=== PATIENT | male | born 1980 | race Hispanic/Latino ===

== ENCOUNTER 2017-09-01 01:19 | Emergency (ER) | payer SELFPAY ==
[2017-09-01] MEDS ORDERED: Adacel (T-DAP) 0.5 ML VIAL ONE (02:54)
== END 2017-09-01 03:22 | disposition home or self-care (01) ==
LOC: ERS 01:19
DX: S02.5XXA Fracture of tooth (traumatic), initial encounter for closed fracture (principal); F17.210 Nicotine dependence, cigarettes, uncomplicated; W51.XXXA Accidental striking against or bumped into by another person, initial encounter
CPT/HCPCS: 90471; 90715

== ENCOUNTER 2019-04-19 00:51 | Inpatient (IN) | payer OTHER, SELFPAY ==
[2019-04-19] MEDS ORDERED: Adacel (T-DAP) 0.5 ML SYRINGE ONE (01:33)
[2019-04-19 01:38] LABS: #Basophils 0.1 thou/uL (0.0-0.2); #Eosinphils 0.1 thou/uL (0.0-0.7); #Lymphocytes 1.8 thou/uL (1.20-3.40); #Monocytes 0.4 thou/uL (0.11-0.59); #Neutrophils 3.5 thou/uL (1.40-6.50); %Basophils 0.9 % (0.0-1.0); %Lymphocytes 31.1 % (21.0-51.0); %Monocytes 6.9 % (0.0-10.0); %Neutrophils 60.1 % (42.0-75.0); Hemoglobin 15.7 g/dL (14.0-18.0); Mean Corpuscular HGB CONC 35.1 g/dL (32.0-36.0); Mean Corpuscular Hemoglobin 35.2 pg (27.0-31.0); Mean Platelet Volume 6.5 fL (7.4-10.4); Platelet Count 235 thou/uL (130-400); RBC Distribution Width 11.8 % (11.5-14.5); Red Blood Cell (RBC) Count 4.46 mill/uL (4.70-6.10); White Blood Cell (WBC) Count 5.8 thou/uL (4.8-10.8)
[2019-04-19 01:53] LABS: ALT (SGPT) 89 U/L (8-55); AST (SGOT) 154 U/L (5-34); Albumin 4.7 g/dL (3.5-5.0); Alkaline Phosphatase 76 U/L (40-110); Anion Gap 18 mmol/L (10-20); BUN (Urea Nitrogen) 6 mg/dL (8.9-20.6); Bilirubin, Total 0.4 mg/dL (0.2-1.2); Calc. Creatinine Clearance 0 mL/min (70-130); Calcium 9.2 mg/dL (7.8-10.44); Carbon Dioxide 22 mmol/L (22-29); Chloride 102 mmol/L (98-107); Estimated GFR-MDRD Greater than 90; Glucose 114 mg/dL (70-105); Potassium 3.7 mmol/L (3.5-5.1); Protein, Total 7.7 g/dL (6.0-8.3); Sodium 138 mmol/L (136-145)
[2019-04-19 02:43] LABS: PTT 27.5 SEC (22.9-36.1); Prothrombin Time 13.2 SEC (12.0-14.7)
[2019-04-19] MEDS ORDERED: Ondansetron PF 4 MG/2 ML Vial ONE (03:24)
[2019-04-19] MEDS ORDERED: Morphine 4 MG/ML VIAL ONE (03:24)
[2019-04-19] MEDS ORDERED: hydrALAZINE 20 MG/ML VIAL SLOW IVP PRN (03:53)
[2019-04-19] MEDS ORDERED: Dextrose 5% in Water 1,000 ML IV PRN (03:53)
[2019-04-19] MEDS ORDERED: Dextrose 50% Abboject 50 ML SYRINGE SLOW IVP PRN (03:53)
[2019-04-19] MEDS ORDERED: Promethazine HCl 25 MG/ML VIAL IM/IV PRN (03:53)
[2019-04-19 03:58] LABS: Amphetamine Not Detected (NotDetected); Barbiturates Screen Not Detected (NotDetected); Benzodiazepine Screen Not Detected (NotDetected); Cocaine Metabolite Screen Not Detected (NotDetected); Medtox Control Line Valid? VALID (VALID); Medtox Reader # READER 4; Methadone Not Detected (NotDetected); Methamphetamine Detected (NotDetected); Opiate Screen Not Detected (NotDetected); Oxycodone Screen Not Detected (NotDetected); Phencyclidine (PCP) Not Detected (NotDetected); THC/Cannabinoid Screen Not Detected (NotDetected); Tricyclic Screen Not Detected (NotDetected)
[2019-04-19] MEDS ORDERED: Sodium Chloride 0.9% 1,000 ML IV SCH (04:30)
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
[2019-04-19] MEDS: Sodium Chloride 0.9% 1,000 ML IV SCH ×3 (05:39→20:53)
[2019-04-19 05:44] VITALS: BMI 20.3
[2019-04-19] MEDS: Acetaminophen 1,000 MG in Premix Bag 1 BAG IVPB SCH ×4 (06:37→23:06)
[2019-04-19] MEDS ORDERED: Lidocaine 1% w/Epinephrine 1:100K 20 ML VIAL ONE (07:51)
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
[2019-04-19] MEDS ORDERED: Lidocaine 2% w/Epinephrine 1:200K 20 ML VIAL NERVE BLCK SCH (08:15)
[2019-04-19 08:46] LABS: Magnesium 2.2 mg/dL (1.6-2.6); Phosphorus 4.3 mg/dL (2.3-4.7)
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
--- NOTE | 2019-04-19 09:10 | RAD ---
Chest one view HISTORY: Chest injury. COMPARISON: 09/01/2014. FINDINGS: Cardiac silhouette is magnified by projection. Pulmonary vasculature is unremarkable. Media stinum is midline. No lobar consolidation or evidence of pneumothorax. laboratory monitor leads overlie the chest. IMPRESSION: No active cardiopulmonary abnormalities are demonstrated.
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
[2019-04-19] MEDS: Famotidine/PF 20 mg/2ml Vial SLOW IVP SCH ×2 (09:50→20:53)
[2019-04-19] MEDS: Multivitamin W/ Minerals 1 TAB PO SCH (09:50)
[2019-04-19] MEDS: Folic Acid 1 MG TAB PO SCH (09:50)
[2019-04-19] MEDS: Amoxicillin/Potassium Clav 500 MG TAB PO SCH ×2 (09:50→20:53)
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
--- NOTE | 2019-04-19 11:32 | CT ---
CT head noncontrast HISTORY: Head injury with intracranial hemorrhage. COMPARISON: 04/19/2019. Earlier exam on the same date. FINDINGS: At the lateral floor of the right frontal cranial fossa, a lobular hyperdense fluid collect ion consistent with parenchymal hematoma has enlarged to 2.6 cm x 2.1 cm greatest diameters on the axial images and is surrounded by small amount of vasogenic edema. The hematoma at the posterior aspect of the left middle cranial fossa floor within the temporal lobe now measures up to 3.8 cm length by 2.1 cm width. It is now surrounded by vasogenic edema. Slight effacement of the left lateral ventricle. No hydrocephalus. Mild diffuse effacement of the sulci the left cerebral hemisphere. The adjacent extra-axial blood along the floor of the left middle cranial fossa has not changed signi ficantly. Blood extending along the left tentorium is again demonstrated. Fluid in the right middle ear cavity and external auditory canal are again demonstrated. CT temporal bones/internal auditory canals is pending. IMPRESSION: Developing intraparenchymal hematomas and surrounding vasogenic edema in the right fronta l lobe and left temporal lobe where small amounts of blood were seen on the original CT exam. Developing cerebral is greater within the left cerebral hemisphere than the right, with slight efface ment of the left lateral ventricle. CT of the right temporal bone is pending regarding the right middle ear fluid.
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
[2019-04-19] MEDS: Ondansetron PF 4 MG/2 ML Vial IVP PRN (12:16)
[2019-04-19] MEDS: Oxazepam 10 MG CAP PO SCH ×3 (12:16→22:53)
[2019-04-19] MEDS ORDERED: levETIRAcetam In NaCl (Iso-Os) 1,000 MG in Premix Bag 1 BAG IVPB SCH (12:30)
[2019-04-19] MEDS: Scopolamine 1.5 mg/72 hour Patch TD SCH (12:45)
--- NOTE | 2019-04-19 17:45 | CT ---
Exam: Brain CT without IV contrast: COMPARISON: 04/19/2019 FINDINGS: Little change in the appearance of the right frontal and left temporal intraparenchymal hematomas and left-sided small subdural hematoma. Small stable punctate hyperdense focus in the right parietal convexity is stable. IMPRESSION: Overall stable appearing bilateral intraparenchymal and left-sided subdural hematoma changes. Continu ed short-term follow-up.
[2019-04-19] MEDS: Morphine 4 MG/ML VIAL SLOW IVP PRN (17:58)
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
[2019-04-19] MEDS ORDERED: Chlorhexidine Gluconate 15 ML UDCUP SSP SCH (22:45)
[2019-04-19] MEDS: Amoxicillin/Potassium Clav 875 MG TAB PO SCH (23:19)
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
[2019-04-20] MEDS: Oxazepam 10 MG CAP PO SCH ×3 (05:59→22:33)
[2019-04-20] MEDS: Morphine 4 MG/ML VIAL SLOW IVP PRN ×2 (06:10→09:42)
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
--- NOTE | 2019-04-20 08:01 | PRG ---
DATE OF SERVICE: 04/20/2019 Mr. Morse this morning is doing much better. He did have a full tonic-clonic seizure yesterday, but was loaded on Keppra and started on 500 b.i.d. He has normalized again and overall looks very well appearing. He had a CT scan performed yesterday afternoon, which appeared stable to the one from yesterday morning. He is alert and oriented. Follows commands. Neurosurgery at this time will sign off and plan to follow up in 6 weeks in the outpatient setting. Job ID: [id number]
[2019-04-20 08:35] LABS: #Basophils 0.1 thou/uL (0.0-0.2); #Eosinphils 0.1 thou/uL (0.0-0.7); #Monocytes 0.7 thou/uL (0.11-0.59); #Neutrophils 8.6 thou/uL (1.40-6.50); %Basophils 0.5 % (0.0-1.0); %Eosinophils 0.6 % (0.0-10.0); %Lymphocytes 9.1 % (21.0-51.0); %Neutrophils 82.8 % (42.0-75.0); Hemoglobin 13.1 g/dL (14.0-18.0); Mean Corpuscular HGB CONC 34.9 g/dL (32.0-36.0); Mean Corpuscular Hemoglobin 35.6 pg (27.0-31.0); Mean Platelet Volume 6.9 fL (7.4-10.4); Platelet Count 191 thou/uL (130-400); RBC Distribution Width 11.7 % (11.5-14.5); Red Blood Cell (RBC) Count 3.69 mill/uL (4.70-6.10); White Blood Cell (WBC) Count 10.4 thou/uL (4.8-10.8)
[2019-04-20] MEDS: Multivitamin W/ Minerals 1 TAB PO SCH (08:56)
[2019-04-20] MEDS: Folic Acid 1 MG TAB PO SCH (08:56)
[2019-04-20] MEDS ORDERED: Chlorhexidine Gluconate 15 ML UDCUP SSP SCH (09:00)
[2019-04-20 09:13] LABS: Anion Gap 16 mmol/L (10-20); BUN (Urea Nitrogen) 6 mg/dL (8.9-20.6); Calc. Creatinine Clearance 137 mL/min (70-130); Calcium 8.4 mg/dL (7.8-10.44); Carbon Dioxide 23 mmol/L (22-29); Chloride 100 mmol/L (98-107); Estimated GFR-MDRD Greater than 90; Glucose 75 mg/dL (70-105); Magnesium 2.2 mg/dL (1.6-2.6); Potassium 4.1 mmol/L (3.5-5.1); Sodium 135 mmol/L (136-145)
[2019-04-20] MEDS: Sodium Chloride 0.9% 1,000 ML IV SCH (09:21)
[2019-04-20] MEDS: Amoxicillin/Potassium Clav 875 MG TAB PO SCH ×2 (09:22→20:29)
[2019-04-20] MEDS: Chlorhexidine Gluconate 15 ML UDCUP SSP SCH ×2 (09:29→20:29)
[2019-04-20] MEDS: Famotidine/PF 20 mg/2ml Vial SLOW IVP SCH (09:29)
[2019-04-20] MEDS ORDERED: traMADol HCl 50 MG TAB PO PRN (15:24)
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
[2019-04-20] MEDS: Acetaminophen 500 MG TAB PO SCH (18:03)
[2019-04-20] MEDS ORDERED: PHOS-NAK 1 PKT PACK PO SCH (20:00)
[2019-04-20] MEDS: levETIRAcetam 500 MG TAB PO SCH (20:29)
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
[2019-04-21] MEDS: Acetaminophen 500 MG TAB PO SCH ×2 (00:39→06:15)
[2019-04-21 05:34] LABS: Anion Gap 13 mmol/L (10-20); BUN (Urea Nitrogen) 7 mg/dL (8.9-20.6); Calc. Creatinine Clearance 139 mL/min (70-130); Calcium 9.3 mg/dL (7.8-10.44); Carbon Dioxide 28 mmol/L (22-29); Chloride 96 mmol/L (98-107); Estimated GFR-MDRD Greater than 90; Glucose 126 mg/dL (70-105); Magnesium 2.1 mg/dL (1.6-2.6); Potassium 3.8 mmol/L (3.5-5.1); Sodium 133 mmol/L (136-145)
[2019-04-21 05:37] LABS: Phosphorus 1.8 mg/dL (2.3-4.7)
[2019-04-21] MEDS: Oxazepam 10 MG CAP PO SCH ×3 (06:15→21:19)
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
[2019-04-21] MEDS: Amoxicillin/Potassium Clav 875 MG TAB PO SCH ×2 (09:23→21:19)
[2019-04-21] MEDS: Multivitamin W/ Minerals 1 TAB PO SCH (09:24)
[2019-04-21] MEDS: levETIRAcetam 500 MG TAB PO SCH ×2 (09:24→21:19)
[2019-04-21] MEDS: Folic Acid 1 MG TAB PO SCH (09:24)
[2019-04-21] MEDS: Chlorhexidine Gluconate 15 ML UDCUP SSP SCH ×2 (09:24→21:19)
[2019-04-21] MEDS: Thiamine 100 MG TAB PO SCH (09:24)
[2019-04-21] MEDS ORDERED: Aluminum & Magnesium Hydroxide 60 ML, Lidocaine 2% Viscous Solution 30 ML, diphenhydrAM... SSW PRN (10:57)
[2019-04-21] MEDS ORDERED: Acetaminophen/Codeine 30-300mg Tablet PO PRN (11:04)
[2019-04-21] MEDS: Ondansetron PF 4 MG/2 ML Vial IVP PRN (11:35)
[2019-04-21] MEDS: Acetaminophen 325 MG TAB PO SCH ×3 (11:40→23:19)
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
[2019-04-22 05:21] LABS: Anion Gap 13 mmol/L (10-20); BUN (Urea Nitrogen) 6 mg/dL (8.9-20.6); Calc. Creatinine Clearance 126 mL/min (70-130); Calcium 9.6 mg/dL (7.8-10.44); Carbon Dioxide 32 mmol/L (22-29); Chloride 96 mmol/L (98-107); Estimated GFR-MDRD Greater than 90; Glucose 115 mg/dL (70-105); Magnesium 2.2 mg/dL (1.6-2.6); Phosphorus 3.2 mg/dL (2.3-4.7); Potassium 3.7 mmol/L (3.5-5.1); Sodium 137 mmol/L (136-145)
[2019-04-22] MEDS: Oxazepam 10 MG CAP PO SCH ×2 (06:08→15:15)
[2019-04-22] MEDS: Acetaminophen 325 MG TAB PO SCH ×2 (06:08→11:40)
[2019-04-22] MEDS: Amoxicillin/Potassium Clav 875 MG TAB PO SCH (09:29)
[2019-04-22] MEDS: levETIRAcetam 500 MG TAB PO SCH (09:29)
[2019-04-22] MEDS: Chlorhexidine Gluconate 15 ML UDCUP SSP SCH (09:29)
[2019-04-22] MEDS: Multivitamin W/ Minerals 1 TAB PO SCH (09:29)
[2019-04-22] MEDS: Folic Acid 1 MG TAB PO SCH (09:29)
[2019-04-22] MEDS: Thiamine 100 MG TAB PO SCH (09:29)
[2019-04-22] MEDS: Scopolamine 1.5 mg/72 hour Patch TD SCH (13:38)
[2019-04-22 16:33] VITALS: BP 122/80; TEMP 98.3
== END 2019-04-22 18:22 | disposition home or self-care (01) | DRG 86 ==
LOC: ERS 00:51 → EEVIPCON 03:53 → IMCU/EMU 03:53 → SJJU 04:22
PROVIDERS: ADMIT Surgery; ATTEND Surgery
DX: S06.6X1A Traumatic subarachnoid hemorrhage with loss of consciousness of 30 minutes or less, initial encounter (principal); S09.21XA Traumatic rupture of right ear drum, initial encounter; S01.511A Laceration without foreign body of lip, initial encounter; S02.42XA Fracture of alveolus of maxilla, initial encounter for closed fracture; R40.2412 Glasgow coma scale score 13-15, at arrival to emergency department; S02.5XXA Fracture of tooth (traumatic), initial encounter for closed fracture; F10.129 Alcohol abuse with intoxication, unspecified; R23.3 Spontaneous ecchymoses; K08.409 Partial loss of teeth, unspecified cause, unspecified class; Y04.0XXA Assault by unarmed brawl or fight, initial encounter
CPT/HCPCS: 36415; 70450; 70480; 70486; 71045; 72125; 80048; 80053; 80306; 80307; 83735; 84100; 85025; 85610; 85730; 90471; 90715; 96361; 96365; 96375; G0390; J0131; J0690; J1953; J2270; J2405; J7050; Q0163; S0028

== ENCOUNTER 2019-08-10 16:35 | Observation (INO) | payer OTHER, SELFPAY ==
--- NOTE | 2019-08-10 17:17 | RAD ---
XR Elbow Rt 4 View STANDARD INDICATION: Fall from ladder with right elbow pain FINDINGS: Bones: There is a comminuted, mildly displaced fracture involving the olecranon process with intra-ar ticular extension into the olecranon articular surface. There is overlying soft tissue swelling. There is a nondisplaced lateral right radial head fracture. Joints: There is mild joint capsular distention. Soft tissues: There is prominent soft tissue swelling overlying the posterior olecranon. IMPRESSION: 1. Comminuted, mildly displaced intra-articular olecranon process fracture. 2. Nondisplaced lateral right radial head fracture
--- NOTE | 2019-08-10 17:31 | RAD ---
XR Hip Rt 2-3 View INDICATION: Fall with right hip pain; fall from ladder of 6 feet COMPARISON: None FINDINGS: Bones: No acute osseous abnormality. Bone mineralization appears within normal limits. Hip joint: Radiographically normal. SI joints and symphysis pubis: Radiographically normal. Intrapelvic contents: Visualized bowel gas pattern is within normal limits. Surrounding soft tissues: Radiographically normal. IMPRESSION: 1. No acute osseous abnormality.
[2019-08-10] MEDS ORDERED: Morphine 4 MG/ML VIAL ONE ×2 (20:01→20:45)
[2019-08-10 20:02] LABS: #Basophils 0.1 thou/uL (0.0-0.2); #Eosinphils 0.1 thou/uL (0.0-0.7); #Lymphocytes 1.4 thou/uL (1.20-3.40); #Monocytes 0.8 thou/uL (0.11-0.59); %Basophils 0.4 % (0.0-1.0); %Eosinophils 0.5 % (0.0-10.0); %Lymphocytes 9.9 % (21.0-51.0); %Monocytes 5.2 % (0.0-10.0); Hemoglobin 15.1 g/dL (14.0-18.0); Mean Corpuscular HGB CONC 33.8 g/dL (32.0-36.0); Mean Corpuscular Hemoglobin 33.7 pg (27.0-31.0); Mean Corpuscular Volume 99.5 fL (78.0-98.0); Mean Platelet Volume 7.1 fL (7.4-10.4); Platelet Count 237 thou/uL (130-400); Red Blood Cell (RBC) Count 4.48 mill/uL (4.70-6.10); White Blood Cell (WBC) Count 14.3 thou/uL (4.8-10.8)
[2019-08-10] MEDS ORDERED: Morphine 2 MG/ML SYRINGE ONE (20:02)
[2019-08-10] MEDS ORDERED: Ondansetron PF 4 MG/2 ML Vial ONE (20:02)
[2019-08-10 20:24] LABS: ALT (SGPT) 106 U/L (8-55); AST (SGOT) 159 U/L (5-34); Albumin 4.8 g/dL (3.5-5.0); Alkaline Phosphatase 70 U/L (40-110); Anion Gap 18 mmol/L (10-20); BUN (Urea Nitrogen) 6 mg/dL (8.9-20.6); Bilirubin, Total 0.5 mg/dL (0.2-1.2); Calc. Creatinine Clearance 0 mL/min (70-130); Calcium 9.1 mg/dL (7.8-10.44); Carbon Dioxide 24 mmol/L (22-29); Chloride 104 mmol/L (98-107); Estimated GFR-MDRD Greater than 90; Globulin 2.7 g/dL (2.4-3.5); Glucose 97 mg/dL (70-105); Potassium 3.9 mmol/L (3.5-5.1); Protein, Total 7.5 g/dL (6.0-8.3); Sodium 142 mmol/L (136-145)
--- NOTE | 2019-08-10 20:32 | RAD ---
XR Wrist 3 Rt View STANDARD: 08/10/2019 8:08 PM CLINICAL INDICATION: Fall with right wrist pain COMPARISON: None. FINDINGS: Bones: No acute osseous abnormality. Joints: Joints space is preserved.. Soft Tissue: Normal.. IMPRESSION: No acute osseous abnormality..
--- NOTE | 2019-08-10 20:32 | RAD ---
Chest AP view INDICATION: Preop evaluation COMPARISON: April 19, 2019 FINDINGS: Lungs:The lungs are clear Cardiac silhouette:The cardiomediastinal silhouette appears within normal limits. Pulmonary vasculature:Normal Pleural spaces:No pleural effusion or pneumothorax is demonstrated. Upper abdomen:No abnormality seen. Osseous structures: No acute osseous abnormality. Additional findings:None. IMPRESSION: No acute cardiopulmonary abnormality.
--- NOTE | 2019-08-10 21:12 | HP ---
REQUESTING PHYSICIAN: Dr. Lee. ATTENDING SURGEON: Dr. Solorio. CONSULTATION: Orthopedics, Dr. Walton. HISTORY OF PRESENT ILLNESS: The patient is a 38-year-old man, who was painting on a small ladder, when he fell landing on his right hip and right elbow. The patient was brought to the emergency department, where he underwent evaluation and examination, and was noted to have a comminuted right olecranon fracture and radial head fracture. The patient denied hitting his head or having any loss of consciousness. ALLERGIES: NONE. CURRENT MEDICATIONS: None. PAST MEDICAL HISTORY: None. PAST SURGICAL HISTORY: None. SOCIAL HISTORY: The patient lives at home with family. Smokes 3 to 4 cigarettes per day and drinks 1 to 2 beers per day. 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 REVIEW OF SYSTEMS: 10-point review of systems is negative except as otherwise stated. PHYSICAL EXAMINATION: VITAL SIGNS: Blood pressure 126/87, heart rate 100, respirations 22, oxygen saturation is 99% on room air, and temperature is 98.3. GENERAL: The patient is resting comfortably in bed. He is awake, alert, conversant. He speaks primarily [place], and bench assembler electrical was used. He does understand simple Malagasy phrases. His Lucian Coma Scale is 15. HEENT: Head is normocephalic and atraumatic. Eyes, extraocular motions are intact. PERRLA bilaterally. Ears are atraumatic without discharge. Nose is atraumatic without discharge. Oropharynx is clear. NECK: Nontender. Trachea is midline. No JVD. CHEST: Clear to auscultation with good inspiratory and expiratory effort. HEART: Regular rate and rhythm. ABDOMEN: Soft, flat, nontender with active bowel sounds. PELVIS: Stable. EXTREMITIES: Neurovascularly intact x4. The patient has tenderness and swelling to the right elbow area globally. He has tenderness to palpation to the right distal radius and ulna. His capillary refill is less than 3 seconds. Pulses are 2+. His sensation is intact. The patient has tenderness to palpation to the right hip. He is neurovascularly intact distally. BACK: Atraumatic and nontender. LABORATORY FINDINGS: White blood cell count 14.3, hemoglobin 15.1, hematocrit 44.6, and platelets 237. Sodium 142, potassium 3.9, chloride 104, CO2 of 24, BUN 6, creatinine 0.69, and glucose 97. Total bilirubin 0.5, AST 159, ALT 106, and alkaline phosphatase 70. RADIOGRAPHIC FINDINGS: Radiograph of the right elbow shows a comminuted, mildly displaced intra-articular olecranon process fracture and a nondisplaced lateral right radial head fracture. Views of the right hip showed no acute osseous abnormality. AP chest x-ray shows no acute cardiopulmonary process. Views of the right wrist show no acute osseous abnormality. ASSESSMENT: 1. Status post fall from ladder. 2. Right olecranon fracture. 3. Right radial head fracture. 4. Right hip contusion. 5. Right wrist sprain. 6. Acute pain secondary to trauma. 7. Transaminitis, possibly related to alcohol abuse. PLAN: Plan will be to admit the patient to the surgical floor. He will be made n.p.o. after midnight. We will do IV hydration, pain control, pulmonary toilet, gastritis and mechanical VTE prophylaxis. The patient was being splinted in the emergency department and was examined in the emergency department by Dr. Walton. We will repeat his labs in the morning. The evaluation, examination, laboratory, and radiographic findings will be discussed with the attending surgeon after this dictation. Job ID: [id number]
[2019-08-10] MEDS ORDERED: Ketorolac Tromethamine 30 MG/ML VIAL ONE (23:08)
[2019-08-10 23:59] VITALS: BMI 23.8
[2019-08-10] MEDS ORDERED: Ketorolac Tromethamine 30 MG/ML VIAL IVP SCH (23:59)
[2019-08-11] MEDS ORDERED: Dextrose 5% in Water 1,000 ML IV PRN (00:04)
[2019-08-11] MEDS ORDERED: Dextrose 50% Abboject 50 ML SYRINGE SLOW IVP PRN (00:04)
[2019-08-11] MEDS ORDERED: Ondansetron ODT 4 MG TAB PO PRN (00:04)
[2019-08-11] MEDS ORDERED: Ondansetron PF 4 MG/2 ML Vial IVP PRN (00:04)
[2019-08-11] MEDS ORDERED: Morphine 2 MG/ML SYRINGE SLOW IVP PRN (00:04)
[2019-08-11] MEDS: Sodium Chloride 0.9% 1,000 ML IV SCH ×2 (00:19→08:43)
[2019-08-11] MEDS ORDERED: Ketorolac Tromethamine 30 MG/ML VIAL IVP SCH ×2 (00:45→06:00)
[2019-08-11] MEDS: Ketorolac Tromethamine 30 MG/ML VIAL IVP SCH ×3 (05:46→18:33)
[2019-08-11 06:24] LABS: ALT (SGPT) 82 U/L (8-55); AST (SGOT) 98 U/L (5-34); Albumin 4.1 g/dL (3.5-5.0); Alkaline Phosphatase 69 U/L (40-110); Bilirubin, Direct 0.6 mg/dL (0.1-0.3); Bilirubin, Total 1.2 mg/dL (0.2-1.2); Protein, Total 6.6 g/dL (6.0-8.3)
[2019-08-11] MEDS ORDERED: CEFAZOLIN 2 GM in Premix Bag 1 BAG IVPB SCH (07:30)
[2019-08-11] MEDS ORDERED: PROPOFOL 200 MG/20 ML VIAL ONE (08:46)
[2019-08-11] MEDS ORDERED: Glycopyrrolate 0.2 MG/ML 5 ML SYRINGE ONE (08:46)
[2019-08-11] MEDS ORDERED: Rocuronium Bromide 10 MG/ML (10ML VIAL) ONE (08:46)
[2019-08-11] MEDS ORDERED: Succinylcholine Chloride 20 MG/ML 10 ml SYRINGE FS ONE (08:46)
[2019-08-11] MEDS ORDERED: Ketorolac Tromethamine 30 MG/ML VIAL ONE (08:46)
[2019-08-11] MEDS ORDERED: Lidocaine 1% PF 5 ML VIAL ONE (08:46)
[2019-08-11] MEDS ORDERED: Ondansetron PF 4 MG/2 ML Vial ONE (08:46)
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
[2019-08-11] MEDS ORDERED: Fentanyl 100 MCG/2 ML VIAL ONE ×4 (14:23→16:41)
--- NOTE | 2019-08-11 15:51 | RAD ---
Exam:Intraoperative fluoroscopy. HISTORY: Olecranon fracture. COMPARISON: 08/10/2019 Exposure: 4.6 minutes, 0.16 mGy FINDINGS: 2 intraoperative fluoroscopic views demonstrate internal fixation of olecranon fracture. Ne ar anatomic alignment. IMPRESSION: Internal fixation hardware placement.
[2019-08-11] MEDS ORDERED: Promethazine HCl 25 MG/ML VIAL SLOW IVP PRN (15:54)
[2019-08-11] MEDS ORDERED: Promethazine HCl 25 MG/ML VIAL IM PRN (15:54)
[2019-08-11] MEDS ORDERED: Ondansetron HCl/PF 4 MG/2 ML Vial IVP PRN (15:54)
--- NOTE | 2019-08-11 20:02 | OP ---
DATE OF PROCEDURE: 08/11/2019 PROCEDURE PERFORMED: Open reduction and internal fixation of right olecranon fracture. PREOPERATIVE DIAGNOSIS: Right olecranon fracture. POSTOPERATIVE DIAGNOSIS: Right olecranon fracture. COMPLICATIONS: None. ESTIMATED BLOOD LOSS: 50 mL. AFTERSCHOOL BABYSITTER: Brannon Parish PA-C IMPLANT: Synthes olecranon plate with variable angle locking screws. INDICATIONS: Mr. Morse is a 38-year-old male, who fell from a ladder. He fractured his right olecranon. He sustained an olecranon fracture with displacement. He was indicated for open reduction and internal fixation to restore anatomic alignment and promote healing. Risks have been reviewed in detail. He elected to proceed with the operation. DESCRIPTION OF PROCEDURE: Mr. Morse was identified in the preoperative holding area. His correct extremity was marked. He was carried to the operating room. He was positioned supine. General anesthesia was induced. A multidisciplinary time-out was performed. The right upper extremity was prepped and draped in sterile fashion. At this point, we began with posterior incision. We dissected down through the subcutaneous tissues to the fascia. We opened the fascia. We exposed the underlying olecranon fracture, which was displaced and comminuted. We cleared the bony edges. We irrigated and removed hematoma. We then reduced the fracture using a reduction clamp. We held this with a K-wire. Next, we applied a posterior olecranon plate. Multiple screws were placed proximally and distally in the olecranon. We took final x- ray images after all screws were placed. We thoroughly irrigated it once more. We then closed with 0 Vicryl suture, 2-0 Vicryl suture, and bryan for the skin. A sterile dressing was applied at this point. The patient was taken to the recovery room in good condition. Job ID: [id number]
[2019-08-11] MEDS ORDERED: traMADol HCl 50 MG TAB PO PRN (21:16)
[2019-08-11] MEDS ORDERED: Cyclobenzaprine 10 MG TAB PO PRN (21:16)
[2019-08-11] MEDS: CEFAZOLIN 2 GM in Premix Bag 1 BAG IVPB SCH (21:34)
[2019-08-11] MEDS: traMADol HCl 50 MG TAB PO PRN (21:44)
[2019-08-11] MEDS: Ibuprofen 600 MG TAB PO SCH (21:45)
[2019-08-12] MEDS: Acetaminophen 500 MG TAB PO SCH ×3 (00:44→12:08)
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
[2019-08-12] MEDS: traMADol HCl 50 MG TAB PO PRN (03:21)
[2019-08-12] MEDS: Ibuprofen 600 MG TAB PO SCH ×2 (06:16→12:08)
[2019-08-12] MEDS: CEFAZOLIN 2 GM in Premix Bag 1 BAG IVPB SCH (06:16)
[2019-08-12 11:45] VITALS: BP 101/61; TEMP 98.1
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
== END 2019-08-12 15:08 | disposition home or self-care (01) ==
LOC: ERS 16:35 → ERHOLD 19:56 → T4-B 23:47
PROVIDERS: ADMIT Surgery; ATTEND Surgery
PROC: 0PSK04Z Reposition Right Ulna with Internal Fixation Device, Open Approach (ICD-10-PCS; principal; 2019-08-11)
DX: S52.031A Displaced fracture of olecranon process with intraarticular extension of right ulna, initial encounter for closed fracture (principal); S52.121A Displaced fracture of head of right radius, initial encounter for closed fracture; S70.01XA Contusion of right hip, initial encounter; S63.501A Unspecified sprain of right wrist, initial encounter; R74.0 Nonspecific elevation of levels of transaminase and lactic acid dehydrogenase [LDH]; F17.210 Nicotine dependence, cigarettes, uncomplicated; W11.XXXA Fall on and from ladder, initial encounter
CPT/HCPCS: 24670; 36415; 71045; 76000; 80053; 80076; 85025; 86850; 86900; 86901; 93005; 96361; 96374; 96375; 96376; C1713; G0378; J0690; J1885; J2001; J2270; J2405; J2704; J3010

== ENCOUNTER 2019-09-22 20:19 | Emergency (ER) | payer SELFPAY, OTHER ==
[2019-09-22 20:59] LABS: #Lymphocytes 1.1 thou/uL (1.20-3.40); #Monocytes 0.9 thou/uL (0.11-0.59); #Neutrophils 10.6 thou/uL (1.40-6.50); %Basophils 0.3 % (0.0-1.0); %Eosinophils 0.1 % (0.0-10.0); %Lymphocytes 8.4 % (21.0-51.0); %Monocytes 6.9 % (0.0-10.0); %Neutrophils 84.3 % (42.0-75.0); Hemoglobin 14.4 g/dL (14.0-18.0); Mean Corpuscular HGB CONC 35.2 g/dL (32.0-36.0); Mean Corpuscular Hemoglobin 35.4 pg (27.0-31.0); Mean Platelet Volume 6.9 fL (7.4-10.4); Platelet Count 223 thou/uL (130-400); RBC Distribution Width 11.6 % (11.5-14.5); Red Blood Cell (RBC) Count 4.08 mill/uL (4.70-6.10); White Blood Cell (WBC) Count 12.6 thou/uL (4.8-10.8)
[2019-09-22 21:22] LABS: ALT (SGPT) 33 U/L (8-55); AST (SGOT) 47 U/L (5-34); Albumin 4.5 g/dL (3.5-5.0); Alkaline Phosphatase 92 U/L (40-110); Anion Gap 18 mmol/L (10-20); BUN (Urea Nitrogen) 8 mg/dL (8.9-20.6); Bilirubin, Total 0.8 mg/dL (0.2-1.2); CK (CPK) 442 U/L (30-200); Calc. Creatinine Clearance 0 mL/min (70-130); Calcium 9.4 mg/dL (7.8-10.44); Carbon Dioxide 25 mmol/L (22-29); Chloride 97 mmol/L (98-107); Estimated GFR-MDRD Greater than 90; Globulin 2.6 g/dL (2.4-3.5); Glucose 134 mg/dL (70-105); Potassium 3.6 mmol/L (3.5-5.1); Protein, Total 7.1 g/dL (6.0-8.3); Sodium 136 mmol/L (136-145)
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
[2019-09-22] MEDS ORDERED: levETIRAcetam 500 MG TAB PO SCH (22:45)
== END 2019-09-22 23:11 | disposition home or self-care (01) ==
LOC: ERS 20:19
DX: R56.9 Unspecified convulsions (principal); F17.210 Nicotine dependence, cigarettes, uncomplicated
CPT/HCPCS: 36415; 70450; 80053; 82550; 83605; 84146; 85025; 93005

== ENCOUNTER 2020-04-17 20:57 | Inpatient (IN) | payer OTHER, SELFPAY ==
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
--- NOTE | 2020-04-17 23:43 | CT ---
CT Chest WO Con History: Rib pain Comparison: Radiograph same day Findings: Small volume gas within the right sternoclavicular joint suggesting a recent injury. Old st ernal fracture. No pneumothorax. Small left extrapleural hematoma. Mild left basilar atelectasis. Punctate focus of e xtrapleural gas along the posterior aspect of the mediastinum axial image 35. Second small focus of extrapleural gas axial image 23 abuts the posterior mediastinum. Nondisplaced right anterior sixth rib fracture. Old right posterior 11th rib fracture. No transverse process fracture. Nondisplaced left lateral third rib fracture. Nondisplaced left lateral fourth rib fracture. Minimall y angulated left lateral fifth rib fracture. Segmental fracture of the left sixth rib anteriorly. Segmental fracture of the left seventh rib anteriorly. Nondisplaced segmental fracture left lateral e ighth rib fracture. No other rib fracture is appreciated. Superior endplate compression deformity is present at T3. Superior endplate Schmorl's nodes at T4 and T5. Relatively acute compression fracture of T12 with 15% anterior and 5% posterior height loss with minimal 1-2 mm retropulsion of the posterior superior endplate. Diffuse hepatic steatosis. Impression: 1. Bilateral rib fractures as described, with a few left-sided rib fractures being segmental. Small l eft extrapleural hematoma and punctate foci of extrapleural gas along the posterior mediastinum. 2. Low-grade incomplete burst fracture of T12 with minimal 1-2 mm retropulsion of the posterior super ior endplate. 3. Recent right sternoclavicular capsular injury without fracture.
[2020-04-18 00:02] LABS: #Basophils 0.1 thou/uL (0.0-0.2); #Eosinphils 0.1 thou/uL (0.0-0.7); #Lymphocytes 1.2 thou/uL (1.20-3.40); #Monocytes 0.7 thou/uL (0.11-0.59); #Neutrophils 9.1 thou/uL (1.40-6.50); %Basophils 0.5 % (0.0-1.0); %Eosinophils 0.7 % (0.0-10.0); %Lymphocytes 10.4 % (21.0-51.0); %Monocytes 5.8 % (0.0-10.0); %Neutrophils 82.5 % (42.0-75.0); Hemoglobin 15.3 g/dL (14.0-18.0); Mean Corpuscular HGB CONC 35.5 g/dL (32.0-36.0); Mean Corpuscular Hemoglobin 35.7 pg (27.0-31.0); Mean Platelet Volume 7.2 fL (7.4-10.4); Platelet Count 241 thou/uL (130-400); RBC Distribution Width 11.7 % (11.5-14.5); Red Blood Cell (RBC) Count 4.28 mill/uL (4.70-6.10); White Blood Cell (WBC) Count 11.1 thou/uL (4.8-10.8)
[2020-04-18 00:23] LABS: ALT (SGPT) 67 U/L (8-55); AST (SGOT) 86 U/L (5-34); Albumin 4.5 g/dL (3.5-5.0); Alkaline Phosphatase 76 U/L (40-110); Anion Gap 16 mmol/L (10-20); BUN (Urea Nitrogen) 5 mg/dL (8.9-20.6); Bilirubin, Total 0.3 mg/dL (0.2-1.2); Calc. Creatinine Clearance 0 mL/min (70-130); Calcium 8.8 mg/dL (7.8-10.44); Carbon Dioxide 26 mmol/L (22-29); Chloride 103 mmol/L (98-107); Estimated GFR-MDRD Greater than 90; Globulin 2.8 g/dL (2.4-3.5); Glucose 118 mg/dL (70-105); Protein, Total 7.3 g/dL (6.0-8.3); Sodium 141 mmol/L (136-145)
[2020-04-18 00:24] LABS: Acetaminophen Less than 6.0 mcg/mL (10.0-30.0); Alcohol 252 mg/dL (Less than 10); Salicylate Less than 8.0 mg/dL (15.0-30.0)
[2020-04-18] MEDS ORDERED: Fentanyl 100 MCG/2 ML VIAL ONE (00:36)
[2020-04-18] MEDS ORDERED: Ondansetron PF 4 MG/2 ML Vial IVP PRN (00:48)
[2020-04-18] MEDS ORDERED: Dextrose 5% in Water 1,000 ML IV PRN (00:48)
[2020-04-18] MEDS ORDERED: Dextrose 50% Abboject 50 ML SYRINGE SLOW IVP PRN (00:48)
[2020-04-18] MEDS ORDERED: Ibuprofen 600 MG TAB PO PRN (00:53)
[2020-04-18] MEDS ORDERED: traMADol HCl 50 MG TAB PO PRN (00:54)
[2020-04-18] MEDS ORDERED: Sodium Chloride 0.9% 1,000 ML IV SCH (01:00)
[2020-04-18 01:10] LABS: Amphetamine Not Detected (NotDetected); Barbiturates Screen Not Detected (NotDetected); Benzodiazepine Screen Not Detected (NotDetected); Cocaine Metabolite Screen Not Detected (NotDetected); Medtox Control Line Valid? VALID (VALID); Medtox Reader # READER 4; Methadone Not Detected (NotDetected); Methamphetamine Not Detected (NotDetected); Opiate Screen Not Detected (NotDetected); Oxycodone Screen Not Detected (NotDetected); Phencyclidine (PCP) Not Detected (NotDetected); THC/Cannabinoid Screen Not Detected (NotDetected); Tricyclic Screen Not Detected (NotDetected)
[2020-04-18 01:33] LABS: Magnesium 2.1 mg/dL (1.6-2.6)
[2020-04-18] MEDS: Cyclobenzaprine 10 MG TAB PO PRN (02:35)
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
[2020-04-18] MEDS: Oxazepam 10 MG CAP PO SCH ×3 (05:25→22:36)
[2020-04-18 05:28] VITALS: BMI 23.2
[2020-04-18] MEDS ORDERED: traMADol HCl 50 MG TAB PO SCH (06:00)
[2020-04-18] MEDS ORDERED: Acetaminophen 500 MG TAB PO SCH (06:00)
[2020-04-18] MEDS ORDERED: Acetaminophen/Codeine 30-300mg Tablet PO PRN (08:13)
[2020-04-18] MEDS: Thiamine 100 MG TAB PO SCH (08:56)
[2020-04-18] MEDS: Famotidine 20 MG TAB PO SCH ×2 (08:56→20:18)
[2020-04-18] MEDS: Folic Acid 1 MG TAB PO SCH (08:56)
[2020-04-18] MEDS: Multivitamin W/ Minerals 1 TAB PO SCH (08:56)
[2020-04-18] MEDS: Senokot S 8.6-50 MG TAB PO SCH ×2 (08:56→20:17)
[2020-04-18] MEDS: Gabapentin 300 MG CAP PO SCH ×3 (08:56→20:18)
[2020-04-18] MEDS: Polyethylene Glycol 3350 17 GM Packet PO SCH (09:02)
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
[2020-04-18 12:12] LABS: SARS-CoV-2 MS2 Positive; SARS-CoV-2 N Gene Negative; SARS-CoV-2 S Gene Negative; SARS-CoV-2 by NAA Not Detected (NotDetected); SARS-CoV-2 orf1ab Negative
[2020-04-18] MEDS: Ibuprofen 600 MG TAB PO SCH ×2 (14:51→22:36)
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
[2020-04-18] MEDS: Acetaminophen/Codeine 30-300mg Tablet PO PRN (20:19)
--- NOTE | 2020-04-19 01:44 | PRG ---
DATE OF SERVICE: 04/18/2020 SUBJECTIVE: The patient was seen during evening rounds resting comfortably. The patient arouses to voice. The patient's pain is well controlled. The patient is able to pull 1750 on his incentive spirometer. The patient is in a well-fitting [place] and clamshell brace at this time. The patient continues to have good movement and sensation in all extremities. PLAN: Continue to increase physical and occupational therapy. Aggressive pulmonary toilet every hour while awake. Continue pain regimen and supportive care. Job ID: [id number]
[2020-04-19] MEDS: Ibuprofen 600 MG TAB PO SCH ×3 (05:05→21:06)
[2020-04-19] MEDS: Oxazepam 10 MG CAP PO SCH ×3 (05:06→21:06)
[2020-04-19 05:17] LABS: Hemoglobin 14.9 g/dL (14.0-18.0); Mean Corpuscular HGB CONC 34.5 g/dL (32.0-36.0); Mean Corpuscular Hemoglobin 35.5 pg (27.0-31.0); Platelet Count 191 thou/uL (130-400); RBC Distribution Width 11.8 % (11.5-14.5)
[2020-04-19 05:40] LABS: Anion Gap 11 mmol/L (10-20); BUN (Urea Nitrogen) 9 mg/dL (8.9-20.6); Calc. Creatinine Clearance 129 mL/min (70-130); Calcium 8.9 mg/dL (7.8-10.44); Carbon Dioxide 30 mmol/L (22-29); Chloride 101 mmol/L (98-107); Estimated GFR-MDRD Greater than 90; Glucose 98 mg/dL (70-105); Magnesium 2.1 mg/dL (1.6-2.6); Phosphorus 3.2 mg/dL (2.3-4.7); Potassium 3.8 mmol/L (3.5-5.1); Sodium 138 mmol/L (136-145)
[2020-04-19] MEDS ORDERED: PHOS-NAK 1 PKT PACK PO SCH (07:45)
--- NOTE | 2020-04-19 08:31 | RAD ---
PORTABLE CHEST: HISTORY: Rib fractures. COMPARISON: Comparison is made to CT of 04/17/2020. FINDINGS/IMPRESSION: Lungs are well aerated. No evidence of significant pneumothorax. Rib fractures are better delineate d on the prior CT. There is evidence of a small left effusion and possibly a small subpleural hemato ma on the left. No consolidation or significant atelectasis identified. POS: OFF
[2020-04-19] MEDS: Acetaminophen/Codeine 30-300mg Tablet PO PRN ×2 (08:54→17:16)
[2020-04-19] MEDS: Gabapentin 300 MG CAP PO SCH ×3 (08:55→21:06)
[2020-04-19] MEDS: Thiamine 100 MG TAB PO SCH (08:56)
[2020-04-19] MEDS: Famotidine 20 MG TAB PO SCH ×2 (08:56→21:06)
[2020-04-19] MEDS: Folic Acid 1 MG TAB PO SCH (08:56)
[2020-04-19] MEDS: Polyethylene Glycol 3350 17 GM Packet PO SCH (08:56)
[2020-04-19] MEDS: Multivitamin W/ Minerals 1 TAB PO SCH (08:56)
[2020-04-19] MEDS: Senokot S 8.6-50 MG TAB PO SCH ×2 (08:56→21:06)
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
[2020-04-19] MEDS: Enoxaparin Sodium 30 MG/0.3 ML SYRINGE SC SCH (21:06)
[2020-04-19] MEDS: Cyclobenzaprine 10 MG TAB PO PRN (21:06)
[2020-04-20 05:33] LABS: #Eosinphils 0.2 thou/uL (0.0-0.7); #Lymphocytes 1.4 thou/uL (1.20-3.40); #Monocytes 0.7 thou/uL (0.11-0.59); #Neutrophils 4.1 thou/uL (1.40-6.50); %Basophils 0.4 % (0.0-1.0); %Eosinophils 3.7 % (0.0-10.0); %Lymphocytes 21.6 % (21.0-51.0); %Monocytes 10.3 % (0.0-10.0); %Neutrophils 64.1 % (42.0-75.0); Hemoglobin 13.7 g/dL (14.0-18.0); Mean Corpuscular HGB CONC 35.1 g/dL (32.0-36.0); Mean Corpuscular Hemoglobin 36.4 pg (27.0-31.0); Mean Platelet Volume 7.2 fL (7.4-10.4); Platelet Count 191 thou/uL (130-400); RBC Distribution Width 11.7 % (11.5-14.5); Red Blood Cell (RBC) Count 3.78 mill/uL (4.70-6.10); White Blood Cell (WBC) Count 6.3 thou/uL (4.8-10.8)
[2020-04-20] MEDS: Oxazepam 10 MG CAP PO SCH ×3 (06:04→21:34)
[2020-04-20] MEDS: Cyclobenzaprine 10 MG TAB PO PRN (06:04)
[2020-04-20] MEDS: Ibuprofen 600 MG TAB PO SCH ×3 (06:04→21:34)
[2020-04-20] MEDS: Senokot S 8.6-50 MG TAB PO SCH ×2 (08:07→19:58)
[2020-04-20] MEDS: Famotidine 20 MG TAB PO SCH (08:07)
[2020-04-20] MEDS: Polyethylene Glycol 3350 17 GM Packet PO SCH (08:07)
[2020-04-20] MEDS: Gabapentin 300 MG CAP PO SCH ×3 (08:08→19:58)
[2020-04-20] MEDS: Folic Acid 1 MG TAB PO SCH (08:08)
[2020-04-20] MEDS: Thiamine 100 MG TAB PO SCH (08:08)
[2020-04-20] MEDS: Multivitamin W/ Minerals 1 TAB PO SCH (08:08)
[2020-04-20] MEDS: Enoxaparin Sodium 30 MG/0.3 ML SYRINGE SC SCH ×2 (08:09→19:58)
[2020-04-20] MEDS: Acetaminophen/Codeine 30-300mg Tablet PO PRN (08:13)
[2020-04-20] MEDS: Acetaminophen/Codeine 30-300mg Tablet PO SCH ×4 (11:09→23:19)
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
[2020-04-21] MEDS: Ibuprofen 600 MG TAB PO SCH (05:00)
[2020-04-21] MEDS: Acetaminophen/Codeine 30-300mg Tablet PO SCH ×3 (05:00→12:48)
[2020-04-21] MEDS: Oxazepam 10 MG CAP PO SCH (05:00)
[2020-04-21] MEDS: Senokot S 8.6-50 MG TAB PO SCH (08:58)
[2020-04-21] MEDS: Multivitamin W/ Minerals 1 TAB PO SCH (08:58)
[2020-04-21] MEDS: Gabapentin 300 MG CAP PO SCH (08:58)
[2020-04-21] MEDS: Thiamine 100 MG TAB PO SCH (08:58)
[2020-04-21] MEDS: Polyethylene Glycol 3350 17 GM Packet PO SCH (08:58)
[2020-04-21] MEDS: Folic Acid 1 MG TAB PO SCH (08:58)
[2020-04-21] MEDS: Enoxaparin Sodium 30 MG/0.3 ML SYRINGE SC SCH (08:58)
[2020-04-21 12:01] VITALS: BP 125/88; TEMP 98.2
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
== END 2020-04-21 13:45 | disposition home or self-care (01) | DRG 184 ==
LOC: ERS 20:57 → SURG A 04-18 02:22
PROVIDERS: ADMIT Surgery; ATTEND Surgery
DX: S22.42XA Multiple fractures of ribs, left side, initial encounter for closed fracture (principal); S22.081A Stable burst fracture of T11-T12 vertebra, initial encounter for closed fracture; S02.40DA Maxillary fracture, left side, initial encounter for closed fracture; S22.039A Unspecified fracture of third thoracic vertebra, initial encounter for closed fracture; J98.11 Atelectasis; S22.31XA Fracture of one rib, right side, initial encounter for closed fracture; K76.0 Fatty (change of) liver, not elsewhere classified; S49.81XA Other specified injuries of right shoulder and upper arm, initial encounter; Y08.89XA Assault by other specified means, initial encounter; Z20.828 Contact with and (suspected) exposure to other viral communicable diseases
CPT/HCPCS: 36415; 70450; 70486; 71045; 71250; 72125; 80048; 80053; 80306; 80307; 82550; 83735; 84100; 85025; 85027; 87635; 94640; 96374; J1650; J3010; J7620; L0639; U0003

== ENCOUNTER 2020-12-22 08:18 | Emergency (ER) | payer OTHER, SELFPAY ==
[2020-12-22 10:13] LABS: #Eosinphils 0.1 thou/uL (0.0-0.7); #Monocytes 0.7 thou/uL (0.11-0.59); %Basophils 0.5 % (0.0-1.0); %Eosinophils 1.6 % (0.0-10.0); %Lymphocytes 11.5 % (21.0-51.0); %Monocytes 7.3 % (0.0-10.0); %Neutrophils 79.1 % (42.0-75.0); Hemoglobin 15.8 g/dL (14.0-18.0); Mean Corpuscular HGB CONC 33.9 g/dL (32.0-36.0); Mean Corpuscular Hemoglobin 34.4 pg (27.0-31.0); Mean Platelet Volume 7.3 fL (7.4-10.4); Platelet Count 201 thou/uL (130-400); RBC Distribution Width 12.3 % (11.5-14.5); Red Blood Cell (RBC) Count 4.58 mill/uL (4.70-6.10); White Blood Cell (WBC) Count 8.9 thou/uL (4.8-10.8)
[2020-12-22 10:36] LABS: ALT (SGPT) 135 U/L (8-55); AST (SGOT) 202 U/L (5-34); Albumin 4.7 g/dL (3.5-5.0); Alkaline Phosphatase 97 U/L (40-110); Anion Gap 19 mmol/L (10-20); BUN (Urea Nitrogen) 7 mg/dL (8.9-20.6); Bilirubin, Total 0.8 mg/dL (0.2-1.2); Calc. Creatinine Clearance 0 mL/min (70-130); Calcium 9.8 mg/dL (7.8-10.44); Carbon Dioxide 21 mmol/L (22-29); Chloride 103 mmol/L (98-107); Globulin 3.4 g/dL (2.4-3.5); Glucose 99 mg/dL (70-105); Potassium 4.3 mmol/L (3.5-5.1); Protein, Total 8.1 g/dL (6.0-8.3); Sodium 139 mmol/L (136-145)
== END 2020-12-22 11:20 | disposition home or self-care (01) ==
LOC: ERS 08:18
DX: S16.1XXA Strain of muscle, fascia and tendon at neck level, initial encounter (principal); R79.89 Other specified abnormal findings of blood chemistry; F17.210 Nicotine dependence, cigarettes, uncomplicated; V49.9XXA Car occupant (driver) (passenger) injured in unspecified traffic accident, initial encounter
CPT/HCPCS: 36415; 70450; 72125; 80053; 85025

== ENCOUNTER 2021-11-08 18:16 | Emergency (ER) | payer SELFPAY ==
[2021-11-08] MEDS ORDERED: levETIRAcetam 500 MG/5 ML VIAL ONE (19:00)
[2021-11-08] MEDS ORDERED: levETIRAcetam 500 MG/5 ML VIAL SLOW IVP SCH (19:00)
== END 2021-11-08 18:31 ==
LOC: ERS 18:16
DX: G40.909 Epilepsy, unspecified, not intractable, without status epilepticus (principal); Z79.899 Other long term (current) drug therapy
CPT/HCPCS: 96374; J1953

== ENCOUNTER 2023-04-26 18:14 | Inpatient (IN) | payer SELFPAY ==
[~2023-04-26 18:14] MED LIST: Iopamidol-370 76% 500 ML MDV (1 ML CHARGE) ONE
[2023-04-26 18:39] LABS: #Basophils 0.1 thou/uL (0.0-0.2); #Eosinphils 0.1 thou/uL (0.0-0.7); #Monocytes 0.8 thou/uL (0.11-0.59); #Neutrophils 13.4 thou/uL (1.40-6.50); %Basophils 0.6 % (0.0-1.0); %Eosinophils 0.4 % (0.0-10.0); %Lymphocytes 7.2 % (21.0-51.0); %Neutrophils 86.4 % (42.0-75.0); Hematocrit 43.5 % (42.0-52.0); Mean Corpuscular HGB CONC 34.5 g/dL (32.0-36.0); Mean Corpuscular Hemoglobin 35.7 pg (27.0-31.0); Mean Corpuscular Volume 103.6 fl (78.0-98.0); Mean Platelet Volume 9.2 fL (7.4-10.4); Platelet Count 240 10x3/uL (130-400); RBC Distribution Width 13.2 % (11.5-14.5); White Blood Cell (WBC) Count 15.5 10x3/uL (4.8-10.8)
[2023-04-26] MEDS ORDERED: Ondansetron PF 4 MG/2 ML Vial ONE ×2 (18:40→18:49)
[2023-04-26] MEDS ORDERED: levETIRAcetam 500 MG/5 ML VIAL ONE (18:49)
[2023-04-26 19:02] LABS: Anion Gap 31 mmol/L (10-20); BUN (Urea Nitrogen) 10 mg/dL (8.9-20.6); Calc. Creatinine Clearance 0 mL/min (70-130); Carbon Dioxide 11 mmol/L (22-29); Chloride 100 mmol/L (98-107); Potassium 3.6 mmol/L (3.5-5.1); Sodium 138 mmol/L (136-145)
[2023-04-26 19:03] LABS: ALT (SGPT) 60 U/L (8-55); AST (SGOT) 131 U/L (5-34); Albumin 5.4 g/dL (3.5-5.0); Alkaline Phosphatase 81 U/L (40-110); Bilirubin, Total 0.4 mg/dL (0.2-1.2); Calcium 9.5 mg/dL (7.8-10.44); Estimated GFR 96; Globulin 2.9 g/dL (2.4-3.5); Glucose 160 mg/dL (70-105); Protein, Total 8.3 g/dL (6.0-8.3)
[2023-04-26 19:26] LABS: Troponin I 0.102 ng/mL (< 0.028)
[2023-04-26 19:27] LABS: Acetaminophen Less than 10 mcg/mL (10.0-30.0); Alcohol Less than 10.0 mg/dL (Less than 10); Magnesium 2.7 mg/dL (1.6-2.6); Salicylate Less than 8.0 mg/dL (15.0-30.0)
[2023-04-26] MEDS ORDERED: Aspirin 300 MG Suppository ONE (19:46)
[2023-04-26 20:33] LABS: Base Excess -4.7 mEq/L (-2.0 to +3.0); Calcium, Ionized (venous) 1.06 mmol/L (1.16-1.32); Chloride (VBG) 103 mmol/L (98-106); Hematocrit-VBG 44 % (42.0-52.0); Hemoglobin (Hb) 14.8 g/dL (13.2-17.3); Potassium (VBG) 3.82 mmol/L (3.70-5.30); Sodium 139 mmol/L (133-146); pH (venous) 7.364 (7.32-7.43)
[2023-04-26 21:19] LABS: Bacteria/HPF None Seen HPF (None Seen); Bilirubin Negative (Negative); Blood, Urine 1+ (Negative); CAUTI Indications for Culture Alt mental st,lethar; Clarity Clear (Clear); Glucose, Urine (Dipstick) Normal (Negative); Ketone, Urine 10 mg/dL (Negative); Leukocyte Negative Leu/uL (Negative); Nitrite Negative (Negative); Protein, Urine (Dipstick) 10 mg/dL (Neg-Trace); RBC/HPF None Seen HPF (0-3); Specific Gravity, Urine 1.013 (1.002-1.036); Squamous Epithelial None Seen HPF (0-3); Urobilinogen Normal mg/dL (Less than 2); WBC/HPF 0-3 HPF (0-3)
[2023-04-26 21:20] LABS: Urine Culture Reflex No No
[2023-04-26 21:25] LABS: Amphetamine Not Detected (NotDetected); Barbiturates Screen Not Detected (NotDetected); Benzodiazepine Screen Not Detected (NotDetected); Cocaine Metabolite Screen Not Detected (NotDetected); Methadone Not Detected (NotDetected); Methamphetamine Not Detected (NotDetected); Opiate Screen Not Detected (NotDetected); Oxycodone Screen Not Detected (NotDetected); Phencyclidine (PCP) Not Detected (NotDetected); THC/Cannabinoid Screen Not Detected (NotDetected); Tricyclic Screen Not Detected (NotDetected)
[2023-04-26] MEDS ORDERED: Acetaminophen 500 MG TAB ONE ×2 (21:33)
[2023-04-26] MEDS ORDERED: Lorazepam 2 MG/ML VIAL IM PRN (21:58)
[2023-04-26] MEDS ORDERED: Acetaminophen 500 MG TAB PO PRN (21:58)
[2023-04-26] MEDS ORDERED: Ondansetron PF 4 MG/2 ML Vial IVP PRN (21:58)
[2023-04-26] MEDS ORDERED: Lorazepam 1 MG TAB PO PRN (21:58)
[2023-04-26] MEDS ORDERED: Nicotine 7 MG PATCH TD PRN (21:58)
[2023-04-26] MEDS ORDERED: Electrolyte Replacement Protocol 1 EACH FS SCH (22:00)
[2023-04-26] MEDS ORDERED: Folic Acid 1 MG TAB PO SCH (22:30)
[2023-04-26] MEDS ORDERED: Multivit, Therapeutic 1 TAB PO SCH (22:30)
[2023-04-26] MEDS ORDERED: Sodium Chloride 0.9% 1,000 ML IV SCH (22:45)
[2023-04-26 23:21] LABS: Troponin I 0.433 ng/mL (< 0.028)
[2023-04-27 00:09] LABS: Lactic Acid 0.6 mmol/L (0.5-2.2)
[2023-04-27] MEDS ORDERED: Folic Acid 1 MG TAB ONE (00:28)
[2023-04-27] MEDS ORDERED: Acetaminophen 500 MG TAB ONE (00:32)
[2023-04-27 01:57] LABS: Hematocrit 35.7 % (42.0-52.0); Hemoglobin 12.9 g/dL (14.0-18.0); Mean Corpuscular HGB CONC 36.1 g/dL (32.0-36.0); Mean Corpuscular Hemoglobin 35.4 pg (27.0-31.0); Mean Platelet Volume 9.3 fL (7.4-10.4); Platelet Count 174 10x3/uL (130-400); RBC Distribution Width 13.1 % (11.5-14.5); Red Blood Cell (RBC) Count 3.64 mill/uL (4.70-6.10); White Blood Cell (WBC) Count 15.3 10x3/uL (4.8-10.8)
[2023-04-27 02:17] LABS: Delete Auto Diff?? YES; Manual Diff?? YES
[2023-04-27 02:25] LABS: Critical Call Chem Troponin I RESULT DECREASING; Troponin I 0.367 ng/mL (< 0.028)
[2023-04-27 02:38] LABS: ALT (SGPT) 46 U/L (8-55); AST (SGOT) 85 U/L (5-34); Albumin 4.6 g/dL (3.5-5.0); Alkaline Phosphatase 58 U/L (40-110); Anion Gap 21 mmol/L (10-20); BUN (Urea Nitrogen) 7 mg/dL (8.9-20.6); Bilirubin, Direct 0.5 mg/dL (0.1-0.3); Bilirubin, Total 0.9 mg/dL (0.2-1.2); Calc. Creatinine Clearance 125 mL/min (70-130); Calcium 8.1 mg/dL (7.8-10.44); Carbon Dioxide 17 mmol/L (22-29); Chloride 101 mmol/L (98-107); Estimated GFR 116; Glucose 108 mg/dL (70-105); Potassium 3.5 mmol/L (3.5-5.1); Protein, Total 6.8 g/dL (6.0-8.3); Sodium 135 mmol/L (136-145)
[2023-04-27 02:51] LABS: CellaVision Operator ID LAB.JMM; Macrocytosis SLIGHT = 6-15 cells HPF (0-5); Platelet Adequacy Comment Platelets Normal
[2023-04-27 05:29] LABS: Band 18 % (5-11); Lymphocytes 5 % (21-51); Monocytes 4 % (0-10); Neutrophil 73 % (42-75)
[2023-04-27 05:41] LABS: Mean Corpuscular Volume 98.1 fl (78.0-98.0)
[2023-04-27] MEDS ORDERED: Potassium Chloride 20 MEQ TAB PO SCH (08:00)
[2023-04-27 08:03] VITALS: BMI 19.8
[2023-04-27] MEDS ORDERED: levETIRAcetam 500 MG TAB PO SCH (09:00)
[2023-04-27] MEDS: Thiamine 100 MG TAB PO SCH (09:26)
[2023-04-27] MEDS: Multivit, Therapeutic 1 TAB PO SCH (09:26)
[2023-04-27] MEDS: Folic Acid 1 MG TAB PO SCH (09:26)
[2023-04-27] MEDS: levETIRAcetam 500 MG TAB PO SCH (20:41)
[2023-04-27] MEDS ORDERED: Lorazepam 1 MG TAB PO PRN (21:58)
[2023-04-28 03:37] VITALS: TEMP 98.3
[2023-04-28 07:06] LABS: #Eosinphils 0.2 thou/uL (0.0-0.7); #Monocytes 0.8 thou/uL (0.11-0.59); #Neutrophils 5.3 thou/uL (1.40-6.50); %Basophils 0.5 % (0.0-1.0); %Eosinophils 2.1 % (0.0-10.0); %Lymphocytes 22.7 % (21.0-51.0); %Monocytes 9.5 % (0.0-10.0); %Neutrophils 65.1 % (42.0-75.0); Hematocrit 40.9 % (42.0-52.0); Hemoglobin 14.4 g/dL (14.0-18.0); Mean Corpuscular HGB CONC 35.2 g/dL (32.0-36.0); Mean Corpuscular Hemoglobin 35.4 pg (27.0-31.0); Mean Corpuscular Volume 100.5 fl (78.0-98.0); Mean Platelet Volume 9.1 fL (7.4-10.4); Platelet Count 176 10x3/uL (130-400); RBC Distribution Width 13.2 % (11.5-14.5); Red Blood Cell (RBC) Count 4.07 mill/uL (4.70-6.10); White Blood Cell (WBC) Count 8.1 10x3/uL (4.8-10.8)
[2023-04-28 08:03] VITALS: BP 115/78
[2023-04-28 08:03] LABS: Anion Gap 13 mmol/L (10-20); BUN (Urea Nitrogen) 6 mg/dL (8.9-20.6); Calc. Creatinine Clearance 107 mL/min (70-130); Calcium 9.4 mg/dL (7.8-10.44); Carbon Dioxide 27 mmol/L (22-29); Chloride 104 mmol/L (98-107); Estimated GFR 115; Glucose 100 mg/dL (70-105); Potassium 3.7 mmol/L (3.5-5.1); Sodium 140 mmol/L (136-145)
[2023-04-28] MEDS: levETIRAcetam 500 MG TAB PO SCH (09:02)
[2023-04-28] MEDS: Multivit, Therapeutic 1 TAB PO SCH (09:02)
[2023-04-28] MEDS: Thiamine 100 MG TAB PO SCH (09:03)
[2023-04-28] MEDS: Folic Acid 1 MG TAB PO SCH (09:03)
[2023-04-28] MEDS ORDERED: Lorazepam 1 MG TAB PO PRN (21:58)
[2023-04-29] MEDS ORDERED: Lorazepam 0.5 MG TAB PO PRN (21:58)
== END 2023-04-28 11:39 | disposition home or self-care (01) | DRG 101 ==
LOC: ERS 18:14 → ERHOLD 21:33 → 2SW 04-27 07:26 → OBSVTOIN 04-27 14:24
PROVIDERS: ADMIT Family Medicine; ATTEND Internal Medicine
PROC: 4A043R1 Measurement of Venous Saturation, Peripheral, Percutaneous Approach (ICD-10-PCS; principal; 2023-04-26)
DX: G40.919 Epilepsy, unspecified, intractable, without status epilepticus (principal); S09.91XA Unspecified injury of ear, initial encounter; F17.290 Nicotine dependence, other tobacco product, uncomplicated; D72.829 Elevated white blood cell count, unspecified; R00.0 Tachycardia, unspecified; R79.89 Other specified abnormal findings of blood chemistry; R50.9 Fever, unspecified; F10.10 Alcohol abuse, uncomplicated; W18.30XA Fall on same level, unspecified, initial encounter; Z98.890 Other specified postprocedural states; Z82.49 Family history of ischemic heart disease and other diseases of the circulatory system; Z87.820 Personal history of traumatic brain injury
CPT/HCPCS: 36415; 36416; 70450; 70480; 71045; 71275; 72125; 80048; 80053; 80076; 80306; 80307; 81001; 82010; 82805; 83605; 83735; 84146; 84443; 84484; 85025; 93005; 93306; 94760; 95711; 95819; 95957; 96365; 96375; G0378; J1953; J2405; J7050; Q9967

== ENCOUNTER 2023-08-18 09:37 | Inpatient (IN) | payer SELFPAY ==
[2023-08-18] MEDS ORDERED: levETIRAcetam 500 MG (5 mL) VIAL ONE (09:46)
[2023-08-18] MEDS ORDERED: Acetaminophen 500 MG TAB ONE (11:01)
[2023-08-18] MEDS ORDERED: Ondansetron PF 4 MG/2 ML Vial ONE (11:02)
[2023-08-18 11:32] LABS: #Basophils 0.1 thou/uL (0.0-0.2); #Monocytes 0.8 thou/uL (0.11-0.59); #Neutrophils 17.6 thou/uL (1.40-6.50); %Basophils 0.4 % (0.0-1.0); %Eosinophils 0.1 % (0.0-10.0); %Lymphocytes 4.1 % (21.0-51.0); %Monocytes 4.2 % (0.0-10.0); %Neutrophils 90.7 % (42.0-75.0); Hematocrit 43.2 % (42.0-52.0); Hemoglobin 15.1 g/dL (14.0-18.0); Mean Corpuscular Volume 97.3 fl (78.0-98.0); Mean Platelet Volume 9.5 fL (7.4-10.4); Platelet Count 241 10x3/uL (130-400); Red Blood Cell (RBC) Count 4.44 mill/uL (4.70-6.10); White Blood Cell (WBC) Count 19.4 10x3/uL (4.8-10.8)
[2023-08-18 11:57] LABS: ALT (SGPT) 53 U/L (8-55); AST (SGOT) 108 U/L (5-34); Albumin 4.2 g/dL (3.5-5.0); Alkaline Phosphatase 82 U/L (40-110); Anion Gap 19 mmol/L (10-20); BUN (Urea Nitrogen) 8 mg/dL (8.9-20.6); Bilirubin, Total 0.7 mg/dL (0.2-1.2); Calc. Creatinine Clearance 0 mL/min (70-130); Calcium 8.4 mg/dL (7.8-10.44); Carbon Dioxide 19 mmol/L (22-29); Chloride 108 mmol/L (98-107); Estimated GFR 112; Globulin 2.9 g/dL (2.4-3.5); Glucose 98 mg/dL (70-105); Lipase 36 U/L (8-78); Potassium 3.8 mmol/L (3.5-5.1); Protein, Total 7.1 g/dL (6.0-8.3); Sodium 142 mmol/L (136-145)
[2023-08-18 12:07] LABS: Prothrombin Time 12.9 sec (12.0-14.7)
[2023-08-18 12:08] LABS: Critical Call Chem Troponin I ERS.DEC @1208; Troponin I 0.519 ng/mL (< 0.028)
[2023-08-18] MEDS ORDERED: Aspirin 325 MG TAB ONE (12:51)
[2023-08-18] MEDS ORDERED: Acetaminophen 325 MG TAB PO PRN (13:04)
[2023-08-18] MEDS ORDERED: Ondansetron PF 4 MG/2 ML Vial IVP PRN (13:04)
[2023-08-18] MEDS ORDERED: Lorazepam 2 MG/ML VIAL SLOW IVP PRN (13:04)
[2023-08-18] MEDS ORDERED: Ondansetron ODT 4 MG TAB PO PRN (13:04)
[2023-08-18] MEDS ORDERED: Senokot S 8.6-50 MG TAB PO PRN (13:04)
[2023-08-18] MEDS ORDERED: Acetaminophen 650 MG Suppository PR PRN (13:04)
[2023-08-18] MEDS ORDERED: Electrolyte Replacement Protocol 1 EACH FS SCH (13:15)
[2023-08-18] MEDS ORDERED: Iopamidol-370 76% 500 ML MDV (1 ML CHARGE) ONE (14:17)
[2023-08-18 14:25] LABS: SARS-CoV-2 NAA Rapid Test Not Detected (NotDetected)
[2023-08-18 16:06] LABS: Bilirubin Negative (Negative); Blood, Urine Negative (Negative); CAUTI Indications for Culture Pelvic or flank pain; Clarity Clear (Clear); Glucose, Urine (Dipstick) Normal (Negative); Ketone, Urine 40 mg/dL (Negative); Leukocyte Negative Leu/uL (Negative); Nitrite Negative (Negative); Protein, Urine (Dipstick) Negative (Neg-Trace); RBC/HPF 0-3 HPF (0-3); Specific Gravity, Urine 1.025 (1.002-1.036); Squamous Epithelial None Seen HPF (0-3); Urobilinogen Normal mg/dL (Less than 2); WBC/HPF None Seen HPF (0-3); pH, Urine 6.5 (5.0-9.0)
[2023-08-18 16:07] LABS: Bacteria/HPF 1+ HPF (None Seen)
[2023-08-18 16:08] LABS: Urine Culture Reflex No No
[2023-08-18 17:23] LABS: Critical Call Chem Troponin I NUR.MHC @1723; Troponin I 0.845 ng/mL (< 0.028)
[2023-08-18] MEDS: Lactated Ringer's 1,000 ML IV SCH (17:34)
[2023-08-18 19:41] VITALS: BMI 21.6
[2023-08-18 20:41] LABS: Critical Call Chem Troponin I NUR.MM7 @2041; Troponin I 0.474 ng/mL (< 0.028)
[2023-08-18] MEDS: levETIRAcetam 500 MG TAB PO SCH (21:02)
[2023-08-18 21:08] LABS: Amphetamine Not Detected (NotDetected); Barbiturates Screen Not Detected (NotDetected); Benzodiazepine Screen Not Detected (NotDetected); Cocaine Metabolite Screen Not Detected (NotDetected); Methadone Not Detected (NotDetected); Methamphetamine Not Detected (NotDetected); Opiate Screen Not Detected (NotDetected); Oxycodone Screen Not Detected (NotDetected); Phencyclidine (PCP) Not Detected (NotDetected); THC/Cannabinoid Screen Not Detected (NotDetected); Tricyclic Screen Not Detected (NotDetected)
[2023-08-18] MEDS: Magnesium 2 GM/50 ML(in water) 2 GM in Premix 1 BAG IVPB SCH (23:45)
[2023-08-19 04:23] LABS: #Basophils 0.1 thou/uL (0.0-0.2); #Eosinphils 0.1 thou/uL (0.0-0.7); #Monocytes 1.1 thou/uL (0.11-0.59); #Neutrophils 9.1 thou/uL (1.40-6.50); %Basophils 0.5 % (0.0-1.0); %Eosinophils 0.9 % (0.0-10.0); %Lymphocytes 14.5 % (21.0-51.0); %Monocytes 9.3 % (0.0-10.0); %Neutrophils 74.6 % (42.0-75.0); Hematocrit 39.2 % (42.0-52.0); Hemoglobin 13.9 g/dL (14.0-18.0); Mean Corpuscular HGB CONC 35.5 g/dL (32.0-36.0); Mean Corpuscular Hemoglobin 34.9 pg (27.0-31.0); Mean Corpuscular Volume 98.5 fl (78.0-98.0); Mean Platelet Volume 9.3 fL (7.4-10.4); Platelet Count 203 10x3/uL (130-400); Red Blood Cell (RBC) Count 3.98 mill/uL (4.70-6.10); White Blood Cell (WBC) Count 12.2 10x3/uL (4.8-10.8)
[2023-08-19 04:44] LABS: Anion Gap 11 mmol/L (10-20); BUN (Urea Nitrogen) 6 mg/dL (8.9-20.6); Calc. Creatinine Clearance 130 mL/min (70-130); Calcium 8.7 mg/dL (7.8-10.44); Carbon Dioxide 26 mmol/L (22-29); Chloride 101 mmol/L (98-107); Estimated GFR 117; Glucose 79 mg/dL (70-105); Potassium 3.3 mmol/L (3.5-5.1); Sodium 135 mmol/L (136-145)
[2023-08-19 06:58] LABS: Magnesium 2.6 mg/dL (1.6-2.6)
[2023-08-19] MEDS: Potassium Chloride 20 MEQ TAB PO SCH (10:47)
[2023-08-19] MEDS: Thiamine 100 MG TAB PO SCH (10:48)
[2023-08-19] MEDS: Multivit, Therapeutic 1 TAB PO SCH (10:48)
[2023-08-19] MEDS: Folic Acid 1 MG TAB PO SCH (10:48)
[2023-08-19] MEDS: FLU VACC QS2023-24(6MOS UP)/PF 60 MCG/0.5 ML SYRINGE IM ONE (18:59)
[2023-08-19 19:29] LABS: Potassium 3.7 mmol/L (3.5-5.1)
[2023-08-20 07:48] VITALS: BP 143/76; TEMP 97.8
== END 2023-08-20 11:21 | disposition left against medical advice (07) | DRG 101 ==
LOC: ERS 09:37 → ERHOLD 13:07 → 2SE 20:25 → OBSVTOIN 08-20 08:16
PROVIDERS: ADMIT Internal Medicine; ATTEND Internal Medicine
PROC: 4A10X4Z Monitoring of Central Nervous Electrical Activity, External Approach (ICD-10-PCS; principal; 2023-08-20)
DX: G40.909 Epilepsy, unspecified, not intractable, without status epilepticus (principal); D72.829 Elevated white blood cell count, unspecified; F17.210 Nicotine dependence, cigarettes, uncomplicated; F10.20 Alcohol dependence, uncomplicated; E87.6 Hypokalemia; Z79.899 Other long term (current) drug therapy; Z98.890 Other specified postprocedural states; Z87.820 Personal history of traumatic brain injury; Z11.52 Encounter for screening for COVID-19; Z91.148 Patient's other noncompliance with medication regimen for other reason
CPT/HCPCS: 36415; 36416; 70450; 71045; 74177; 80048; 80053; 80306; 80307; 81001; 83690; 83735; 84146; 84484; 85025; 85610; 85730; 87040; 90471; 90686; 93005; 94760; 95816; 95819; 96361; 96367; G0008; G0378; J1953; J2405; J3475; J7120; Q9967